=== PATIENT | male | born 2000 | race Caucasian/White ===

== ENCOUNTER 2018-05-18 18:03 | Emergency (ER) | payer BC ==
[~2018-05-18] VITALS: Ht 180.3 cm; Wt 70.5 kg
[2018-05-18 18:13] VITALS: BP 134/72; TEMP 98.4
[2018-05-18 18:57] LABS: AMORPHOUS CRYSTAL Present /uL; MUCOUS Present /lpf; PH 7 (5-8); SQUAMOUS EPITHELIAL None Seen /hpf; URINE APPEARANCE Clear; URINE BACTERIA None Seen /hpf; URINE BILIRUBIN Negative (NEGATIVE); URINE BLOOD Negative (NEGATIVE); URINE COLOR Yellow; URINE GLUCOSE Negative (NEGATIVE); URINE KETONE Negative (NEGATIVE); URINE LEUKOCYTE ESTERASE Negative (NEGATIVE); URINE NITRATE Negative (NEGATIVE); URINE PROTEIN(semi-quant) Negative (NEGATIVE); URINE RBC 0-2 /hpf; URINE UROBILINOGEN Negative (NEGATIVE); URINE WBC 0-2 /hpf
[2018-05-18 19:16] LABS: COLLECTION METHOD CLEAN CATCH
[2018-05-18 19:55] VITALS: PULSE 77
== END 2018-05-18 19:58 | disposition home or self-care (01) ==
LOC: COL.ER 18:03
PROVIDERS: Emergency Medicine
DX: N34.2 Other urethritis (principal)
CPT/HCPCS: J0696

== ENCOUNTER 2020-10-29 16:51 | Emergency (ER) | payer BC ==
[~2020-10-29] VITALS: Ht 177.8 cm; Wt 68.2 kg
[~2020-10-29 16:51] MED LIST: CARAFATE 1GM1 G PO; PROTONIX 40MG T40 MG PO
[2020-10-29 16:56] VITALS: TEMP 98
[2020-10-29] MEDS ORDERED: CEPHALEXIN500 M1 PO (19:05)
[2020-10-29 19:16] VITALS: BP 117/74; PULSE 78
== END 2020-10-29 19:24 | disposition home or self-care (01) ==
LOC: COL.ER 16:51
DX: S62.012A Displaced fracture of distal pole of navicular [scaphoid] bone of left wrist, initial encounter for closed fracture (principal); S61.412A Laceration without foreign body of left hand, initial encounter; S40.211A Abrasion of right shoulder, initial encounter; S20.319A Abrasion of unspecified front wall of thorax, initial encounter; V19.9XXA Pedal cyclist (driver) (passenger) injured in unspecified traffic accident, initial encounter; Y93.55 Activity, bike riding
CPT/HCPCS: J0295

== ENCOUNTER → 2022-08-07 | Outpatient (CLI) | payer BC ==
[~2022-08-07] MED LIST changes: +CEPHALEXIN500 M1 PO
== END ==
LOC: COL.RAD 08-01 15:45
DX: D72.819 Decreased white blood cell count, unspecified (principal)

== ENCOUNTER 2022-10-08 11:45 | Emergency (ER) | payer BC ==
[~2022-10-08] VITALS: Ht 177.8 cm; Wt 68.2 kg
[~2022-10-08 11:45] MED LIST changes: +MOTRIN 600600 MG/TAB PO; +NORCO 325 MG-51 TAB PO
[2022-10-08 11:58] VITALS: TEMP 98.1
[2022-10-08] MEDS ORDERED: MOTRIN 800800 MG/TAB PO (13:53)
[2022-10-08 14:05] VITALS: BP 118/72; PULSE 80
== END 2022-10-08 14:07 | disposition home or self-care (01) ==
LOC: COL.ER 11:45
DX: R10.12 Left upper quadrant pain (principal); Z90.49 Acquired absence of other specified parts of digestive tract
CPT/HCPCS: Q9967